=== PATIENT | female | born 1985 | race Caucasian/White ===

== ENCOUNTER 2019-11-27 17:17 | Emergency (ER) | payer BC, SELFPAY ==
[2019-11-27 18:26] VITALS: BP 141/99; PULSE 85; RESP 18; TEMP 36.6; O2SAT 100; BMI 27.4
--- NOTE | 2019-11-27 19:16 | ED_ITS ---
HPI - General Adult General: Chief complaint: General Medical Stated complaint: throat/neck pain, swollen throat Time Seen by Provider: 11/27/19 19:14 Source: patient Mode of arrival: ambulatory Limitations: no limitations History of Present Illness: HPI narrative: Patient comes in with throat pain with swallowing. Patient reports she was yawning and felt a strain and a pop in her left side of her anterior neck. Since that time patient had some increased difficulty swallowing. Patient appears well. Patient is managing secretions well. No acute distress is noted. Review of Systems General: Reports: 10 or more systems reviewed and unremarkable except in HPI and below ENMT: Reports: throat pain PFSH ED PFSH: Statuses (acute, chronic, etc) shown below reflect problem list status as previously entered and may not be historically accurate Social History Smoking and tobacco status: never smoked Female Reproductive History: Date of last menstrual period: 11/27/19 Physical Exam Const: COMMON NORMALS: no apparent distress and oriented x3 GENERAL APPEARANCE: cooperative HENMT: COMMON NORMALS: normocephalic, external ears normal, EAC's normal, TM's normal bilaterally and external nose normal HEAD & SCALP: normal to inspection and normocephalic FACE & SINUS: normal facial exam NOSE: external nose normal GENERAL EAR: hearing not grossly impaired EXTERNAL EAR: Yes external ears normal EXTERNAL AUDITORY CANAL: EAC's normal TYMPANIC MEMBRANE: TM's normal bilaterally MOUTH: oral and palatal mucosa normal THROAT: posterior oropharynx normal Eye: COMMON NORMALS: PERRL and EOMs intact bilaterally PUPIL: Yes PERRL Neck/C-Spine: COMMON NORMALS: full ROM and no lymphadenopathy GENERAL: No anterior neck swelling and Yes other (anterior soft tissue tenderness left side of neck) Lymph: LYMPHATIC: no lymphedema noted Chest: COMMONS NORMALS: inspection of chest normal and palpation of chest normal Resp: COMMON NORMALS: normal respiratory effort and clear to auscultation bilaterally AUSCULTATION: clear to auscultation bilaterally Cardio: COMMON NORMALS: regular rate and regular rhythm RATE: regular rate RHYTHM: regular rhythm GI: COMMON NORMALS: normal to inspection, nondistended, normoactive bowel sounds and non-tender : COMMON NORMALS: Yes no CVA tenderness BLADDER/KIDNEY EXAM: Yes no CVA tenderness Back/Pelvis: COMMON NORMALS: no CVA tenderness and thoracic and lumbar spine normal to inspection Extremity: COMMON NORMALS: normal to inspection GENERAL: No edema Neuro: COMMON NORMALS: oriented x3, moves all extremities and no focal motor deficits Psych: COMMON NORMALS: mental status grossly normal and cooperative Skin: COMMON NORMALS: no rashes or lesions noted GENERAL SKIN EXAM: no rashes or lesions noted Course Vital Signs: Vital signs: Vital Signs Temperature 98.3 F 11/27/19 19:28 Pulse Rate 74 11/27/19 19:28 Respiratory Rate 14 11/27/19 19:28 Blood Pressure 132/79 11/27/19 19:28 Pulse Oximetry 98 11/27/19 19:28 MDM - General Adult MDM Narrative: Medical decision making narrative: Exam scratch that patient comes in with throat pain after yawning. Exam notes no obvious swelling or posterior pharyngeal erythema. Palpation of the neck notes tenderness to the left anterior neck with no obvious lymphadenopathy or abscess formation. Differential diagnosis includes strep pharyngitis, cervical strain, tendinitis, intervertebral disc disease, facet arthropathy. Reviewed exam with patient re commended treatment with NSAIDs and fluids. Patient reports understanding and agreed to plan. Discharge Plan Discharge Patient Disposition: Home, Self-Care Clinical Impression: Tendonitis Condition: Stable Prescriptions: New diclofenac sodium 75 mg tablet,delayed release (DR/EC) 75 mg PO BID Qty: 20 RF: 0 Discharge Orders: Discharge Order (Routine); Ordered 11/27/19 Ordered By: Jamison Cabrera Referrals: Shelly Cowart MD [Family Provider] - Discharge Diet: Advance as tolerated Discharge Activity: Resume usual activity Patient Instructions: Cervical Sprain (ED) Activity Restrictions/Additional Instructions: Drink plenty of fluids Medications as directed Follow-up with primary care in one week for persistent pain Return to ER for uncontrolled pain or high fever Discharge Date/Time: 11/27/19 19:29 Coding Level of Care Code ED [employer] for [employer] Exam Problem Focused
[2019-11-27 19:21] VITALS: BP 130/79; PULSE 70; RESP 14; TEMP 36.7; O2SAT 98
[2019-11-27 19:28] VITALS: BP 132/79; PULSE 74; RESP 14; TEMP 36.8; O2SAT 98
== END 2019-11-27 19:29 | disposition home or self-care (01) ==
PROVIDERS: Emergency Provider Nurse Practitioner Family; Family Provider Family Medicine
DX: M77.9 Enthesopathy, unspecified (principal)
CPT/HCPCS: 99281

== ENCOUNTER → 2019-12-23 08:23 | Outpatient (BNVA) | payer BC, SELFPAY | PROVIDERS: Family Provider Family Medicine; PCP Family Medicine; Visit Provider Internal Medicine Cardiovascular Disease | DX: R07.9 Chest pain, unspecified (principal); R00.0 Tachycardia, unspecified | CPT/HCPCS: 80061; 84443; 85025 ==

== ENCOUNTER 2020-06-01 17:25 | Emergency (ER) | payer OTHER, SELFPAY ==
[2020-06-01 17:30] VITALS: BMI 27.1
[2020-06-01 17:47] VITALS: BP 132/85; PULSE 127; RESP 16; TEMP 36.9; O2SAT 98
--- NOTE | 2020-06-01 17:59 | XRR_ITS ---
PROCEDURE INFORMATION: Exam: XR Chest, 1 View Exam date and time: 06/01/2020 6:16 PM Age: 34 years old Clinical indication: Cough and fever and shortness of breath; Patient HX: SOB, cough x 7 days. Fever x 4 days; Additional info: Covid TECHNIQUE: Imaging protocol: XR of the chest Views: 1 view. COMPARISON: CR Chest 1 [place] [id number] 12/31/2017 10:13 AM FINDINGS: Lungs: Mild airspace disease within the left lung base. Infiltrate and/or atelectasis. Pleural space: Unremarkable. No pleural effusion. No pneumothorax. Heart/Mediastinum: Unremarkable. No cardiomegaly. Bones/joints: Unremarkable. XR/XR chest 1V portable [id number] IMPRESSION: Mild airspace disease within the left lung base. Infiltrate and/or atelectasis. This represents an interval change.
[2020-06-01 18:03] VITALS: O2SAT 99
[2020-06-01 18:08] VITALS: TEMP 38.3
[2020-06-01 18:12] LABS: Basophils % 0.2 %; Hemoglobin 14.5 g/dL (11.5-15.3); Lymphocytes # 1.2 10^3/uL (0.8-4.8); Mean Corpuscular HGB Conc 32.2 g/dL (30.0-36.0); Mean Corpuscular Volume 80.8 fL (81-99); Mean Platelet Volume 9.6 fL (7.4-10.4); Monocytes # 0.4 10^3/uL (0.2-0.9); Monocytes % 7.7 %; Neutrophils % 65.9 %; Nucleated Red Blood Cells % 0 %; Platelet Count 229 10^3/cmm (130-400); Red Blood Count 5.57 10^6/uL (4.1-5.3); White Blood Count 4.7 10^3/uL (4.0-10.0)
[2020-06-01] MEDS: sodium chloride 0.9% 1,000 ML 999 ML IV (18:21)
[2020-06-01] MEDS: ibuprofen 600 mg Tablet PO (18:21)
--- NOTE | 2020-06-01 18:23 | W.ED.FEVER ---
HPI - Fever General: Chief Complaint: Fever Stated Complaint: COVID SYMPTOMS Time Seen by Provider: 06/01/20 17:39 History of Present Illness: HPI Narrative: This patient is a 34 year old female - generally healthy other than a history of intermittent sinus tachycardia. Her father tested positive for COVID 9 days ago. He had mild illness - only two days of fever. She and her mother both became illl two days later and the patient comes in today because she is concerned about her 7 days of high fever - the highest 102.7 - and rarely below 101 even with tylenol. She does have a dry cough and has lost her sense of smell. She is only short of breath with walking across a room and she also gets dizzy when she stands and walks. She has not had an appetite and has been trying to drink a lot of fluids. She complains of a constant dry mouth. MD elicited complaint: fever, malaise and other (cough) Onset (ago): day(s) (7) Measured temperature: 102.7 F Context: sick contacts (father tested positive for COVID 9 days ago) Associated symptoms: Reports chills, cough, headache(s), myalgias and nausea; Deny flank pain or chest pain Treatments prior to arrival fever: acetaminophen Review of Systems General: Reports: 10 or more systems reviewed and unremarkable except in HPI and below Const: Reports: fever(s), chills, body aches, change in appetite, fatigue and malaise Eyes: Denies: change in vision ENMT: Denies: odynophagia Card: Denies: chest pain or swelling of feet/ankles Resp: Reports: non-productive cough; Denies: dyspnea or productive cough GI: Reports: nausea : Denies: flank pain or difficulty voiding Musc: Denies: neck pain or back pain Skin/Breast: Denies: rash Neuro: Reports: headache(s) Bogdan/Lymph: Denies: easy bruising or easy bleeding PFSH ED PFSH: Medical History Hx of thyroid nodule Intermittent palpitations Family History Mother Diabetes Hyperlipidemia Hypertension Father Hyperlipidemia Hypertension Denies family history of CAD (coronary artery disease) Clotting disorder Dementia Psychiatric illness Chronic kidney disease (CKD) Suicide Anesthesia complication Bleeding disorder Family history of premature coronary artery disease Lung disease Cancer Stroke Social History Smoking and tobacco status: never smoked Alcohol intake: never Female Reproductive History: Date of last menstrual period: 11/27/19 Physical Exam Const: COMMON NORMALS: no acute distress, patient oriented x3, no limitations and alert GENERAL APPEARANCE: cooperative, comfortable and anxious HENMT: HEAD & SCALP: normal to inspection FACE & SINUS: normal facial exam Eye: GENERAL EYE: appearance normal, both eyes and all related structures Neck/C-Spine: COMMON NORMALS: supple, no meningeal signs and no JVD Chest: COMMONS NORMALS: normal inspection of the chest Resp: COMMON NORMALS: normal respiratory effort and No use of accessory muscles AUSCULTATION: crackles Laterality: bilateral Cardio: COMMON NORMALS: no JVD, regular rhythm and No murmurs present (Cardio) RATE: tachycardic RHYTHM: regular rhythm GI: COMMON NORMALS: Normal to inspection, nondistended, normoactive bowel sounds present, Soft to palpation and non-tender INSPECTION: Yes normal to inspection AUSCULTATION: Yes normoactive bowel sounds PALPATION: Yes Soft to palpation Back/Pelvis: COMMON NORMALS: thoracic and lumbar spine normal to inspection Extremity: COMMON NORMALS: normal to inspection Neuro: COMMON NORMALS: patient oriented x3, moves all extremities, no focal motor deficits and no sensory deficits noted SENSORIUM/ORIENTATION: Yes alert MENINGEAL SIGNS: Yes no meningeal signs Psych: COMMON NORMALS: mental status grossly normal, cooperative and normal affect Skin: COMMON NORMALS: no rashes or lesions noted and turgor normal GENERAL SKIN EXAM: no rashes or lesions noted and turgor normal Course ED course: This patient presents with signs and symptoms consistent with COVID as well as a known exposure to a household member with COVID. She has been sick for about a week and is concerned about progression of symptoms. She is concerned that she has had a fever for this long. She has been checking her temperature regularly at home and even checked it repeatedly while she was here in the emergency room. She also has a pulse ox and has been checking that at home. Her chest x-ray today does show some changes consistent with COVID viral pneumonia. Her lab work is also consistent with COVID. She refused a COVID nasal swab. She did not want it done and felt that since she had exposure in classical symptoms that she did not need it. I would agree with that. She was given IV fluids and observed in the ED. Her pulse ox remained 98% on room air. She refused ibuprofen due to concerns that it was contraindicated with COVID. She asked about hydroxychloroquine and Zithromax. We discussed that at this stage of her illness and level of illness that there were no medications that were indicated. She does not require hospitalization at this point. We had a long discussion about return precautions. She also understands about isolation precautions. Vital Signs: Vital signs: Vital Signs Temperature 101.7 F H 06/01/20 19:42 Pulse Rate 101 H 06/01/20 20:40 Respiratory Rate 18 06/01/20 19:42 Blood Pressure 137/83 06/01/20 19:42 Pulse Oximetry 98 06/01/20 20:40 MDM - Fever Lab Data: Labs: Lab Results 06/01/20 06/01/20 06/01/20 Range/Units 18:03 18:03 18:03 WBC 4.7 (4.0-10.0) 10^3/ uL RBC 5.57 H (4.1-5.3) 10^6/u L Hgb 14.5 (11.5-15.3) g/dL Hct 45.0 (37.0-47.0) % MCV 80.8 L (81-99) fL MCH 26.0 L (28.0-34.0) pg MCHC 32.2 (30.0-36.0) g/dL RDW 13.0 (12.1-15.1) % Plt Count 229 (130-400) 10^3/c mm MPV 9.6 (7.4-10.4) fL Neut % (Auto) 65.9 % Lymph % (Auto) 26.0 % [place] % (Auto) 7.7 % Eos % (Auto) 0.0 % Baso % (Auto) 0.2 % Neut # (Auto) 3.10 (1.8-7.7) 10^3/u L Lymph # (Auto) 1.2 (0.8-4.8) 10^3/u L [place] # (Auto) 0.4 (0.2-0.9) 10^3/u L Eos # (Auto) 0.0 (0.0-0.8) 10^3/u L Baso # (Auto) 0.0 (0.0-0.1) 10^3/u L Nucleated RBC % (a uto) 0 % Nucleated RBCs # 0.0 /100WBC PT 12.60 (12.1-14.9) SECO NDS INR 0.92 (0.8-1.2) Fibrinogen 505 H (174-498) mg/dL D-Dimer 0.92 H (0-0.59) ug/mIFE U Sodium 134 L (136-145) mmol/L Potassium 3.8 (3.5-5.1) mmol/L Chloride 98 (98-107) mmol/L Carbon Dioxide 24 (22-29) mmol/L Anion Gap 15.8 (5-19) BUN 6 (6-20) mg/dL Creatinine 0.7 (0.5-0.9) mg/dL GFR Calculation 97.0 (90-130) mL/min Glucose 114 (65-115) mg/dL Calculated Osmolal ity 275 L (285-295) mOsm/k g Calcium 8.8 (8.5-10.5) mg/dL Ferritin 158 H (15-150) ng/mL Total Bilirubin 0.7 (0.15-1.2) mg/dL AST 50 H (0-32) U/L ALT 38 H (0-33) U/L Alkaline Phosphata se 117 H (35-105) IU/L Lactate Dehydrogen ase 207 (135-214) U/L C-Reactive Protein 30.4 H (0.0-4.9) mg/L NT-Pro-B Natriuret Pep 9 (0-125) pg/mL Total Protein 8.2 (6.6-8.7) g/dL Albumin 4.4 (3.5-5.2) g/dL Globulin 3.8 (1.3-4.6) g/dL Procalcitonin 0.08 (0-0.5) ng/mL HCG, Qual (Negative) 06/01/20 Range/Units 18:03 WBC (4.0-10.0) 10^3/ uL RBC (4.1-5.3) 10^6/u L Hgb (11.5-15.3) g/dL Hct (37.0-47.0) % MCV (81-99) fL MCH (28.0-34.0) pg MCHC (30.0-36.0) g/dL RDW (12.1-15.1) % Plt Count (130-400) 10^3/c mm MPV (7.4-10.4) fL Neut % (Auto) % Lymph % (Auto) % [place] % (Auto) % Eos % (Auto) % Baso % (Auto) % Neut # (Auto) (1.8-7.7) 10^3/u L Lymph # (Auto) (0.8-4.8) 10^3/u L [place] # (Auto) (0.2-0.9) 10^3/u L Eos # (Auto) (0.0-0.8) 10^3/u L Baso # (Auto) (0.0-0.1) 10^3/u L Nucleated RBC % (a uto) % Nucleated RBCs # /100WBC PT (12.1-14.9) SECO NDS INR (0.8-1.2) Fibrinogen (174-498) mg/dL D-Dimer (0-0.59) ug/mIFE U Sodium (136-145) mmol/L Potassium (3.5-5.1) mmol/L Chloride (98-107) mmol/L Carbon Dioxide (22-29) mmol/L Anion Gap (5-19) BUN (6-20) mg/dL Creatinine (0.5-0.9) mg/dL GFR Calculation (90-130) mL/min Glucose (65-115) mg/dL Calculated Osmolal ity (285-295) mOsm/k g Calcium (8.5-10.5) mg/dL Ferritin (15-150) ng/mL Total Bilirubin (0.15-1.2) mg/dL AST (0-32) U/L ALT (0-33) U/L Alkaline Phosphata se (35-105) IU/L Lactate Dehydrogen ase (135-214) U/L C-Reactive Protein (0.0-4.9) mg/L NT-Pro-B Natriuret Pep (0-125) pg/mL Total Protein (6.6-8.7) g/dL Albumin (3.5-5.2) g/dL Globulin (1.3-4.6) g/dL Procalcitonin (0-0.5) ng/mL HCG, Qual Negative (Negative) Discharge Plan Discharge Patient Disposition: Home Clinical Impression: COVID-19 Condition: Stable Prescriptions: No Action metoprolol tartrate 25 mg tablet 12.5 mg PO BID Qty: 30 RF: 0 Vitamin C 1,000 mg Tablet 1,000 mg PO DAILY RF: 0 Tylenol Extra Strength 500 mg Tablet 1,000 mg PO PRN RF: 0 budesonide 0.5 mg/2 mL Suspension For Nebulization 0.5 mg INHALATION BID RF: 0 Vitamin D3 1 tab PO DAILY RF: 0 zinc 1 tab PO DAILY RF: 0 Discharge Orders: Discharge Order (Routine); Ordered 06/01/20 Ordered By: Natalie Sarmiento Referrals: Shelly Cowart MD [Primary Care Provider] - Discharge Diet: Usual diet Discharge Activity: Resume usual activity Patient Instructions: Viral Pneumonia (ED) Activity Restrictions/Additional Instructions: Continue to self quarantine until you are free of any symptoms for at least 72 hours. Continue your follow-up with the health department. Return to the emergency department if shortness of breath or pulse ox less than 94% for more than a few hours. Return for any other concerns as well. Discharge Date/Time: 06/01/20 20:41 Coding Level of Care Code ED [employer] for [employer] Exam Comprehensive
[2020-06-01 18:26] LABS: D Dimer 0.92 ug/mIFEU (0-0.59)
[2020-06-01 18:28] LABS: Fibrinogen 505 mg/dL (174-498)
[2020-06-01 18:37] LABS: HCG, Serum Qual Negative (Negative)
[2020-06-01 18:40] LABS: NT Pro B Type Natriuretic Pept 9 pg/mL (0-125); Procalcitonin 0.08 ng/mL (0-0.5)
[2020-06-01 18:52] LABS: Alanine Aminotransferase 38 U/L (0-33); Albumin Level 4.4 g/dL (3.5-5.2); Alkaline Phosphatase 117 IU/L (35-105); Anion Gap 15.8 (5-19); Aspartate Amino Transferase 50 U/L (0-32); Blood Urea Nitrogen 6 mg/dL (6-20); C Reactive Protein 30.4 mg/L (0.0-4.9); Calcium 8.8 mg/dL (8.5-10.5); Carbon Dioxide 24 mmol/L (22-29); Chloride 98 mmol/L (98-107); Ferritin 158 ng/mL (15-150); Globulin 3.8 g/dL (1.3-4.6); Glucose 114 mg/dL (65-115); Lactate Dehydrogenase 207 U/L (135-214); Osmolality Calculated 275 mOsm/kg (285-295); Potassium 3.8 mmol/L (3.5-5.1); Sodium 134 mmol/L (136-145); Total Bilirubin 0.7 mg/dL (0.15-1.2); Total Protein 8.2 g/dL (6.6-8.7)
[2020-06-01 19:00] VITALS: RESP 16
[2020-06-01 19:03] LABS: INR 0.92 (0.8-1.2)
[2020-06-01 19:42] VITALS: BP 137/83; PULSE 103; RESP 18; TEMP 38.7; O2SAT 96
[2020-06-01 20:40] VITALS: PULSE 101; O2SAT 98
== END 2020-06-01 20:41 | disposition home or self-care (01) ==
PROVIDERS: Emergency Provider Emergency Medicine; PCP Family Medicine
DX: U07.1 COVID-19 (principal)
CPT/HCPCS: 12345; 36415; 71045; 80053; 82728; 83615; 83880; 84145; 84703; 85025; 85378; 85384; 85610; 86140; 96360; 99282; 99283; J7030

== ENCOUNTER 2020-08-27 18:09 | Emergency (ER) | payer SELFPAY ==
[2020-08-27 18:23] VITALS: BP 114/72; PULSE 81; RESP 22; TEMP 36.4; O2SAT 98; BMI 28.7
--- NOTE | 2020-08-27 18:56 | W.ED.ALLEREA ---
HPI - Allergic Reaction General: Chief complaint: Allergic Reaction Stated complaint: rash/throat Time Seen by Provider: 08/27/20 18:38 Source: patient Mode of arrival: ambulatory Limitations: no limitations History of Present Illness: HPI narrative: Annita is a very nice 35-year-old female who comes in complaining of an allergic reaction. Patient states that she ate some food and then went outside to work in her yard when she started to feel nauseous and had cramping abdominal pain. She then developed diarrhea. She denies any chest pain or shortness of breath. She denies any throat tightening. The patient states after she finished having a bowel movement she noticed swelling of her ears and diffuse hives and itching all over her body and extremities. Patient is taken 2 Benadryl tablets at home and feels mildly better but still has the occasional cramping abdominal pain and itching and hives. Patient denies having any similar symptoms to this in the past. She states the food that she ate was food that she is eaten multiple times in the past. She is unaware of any new medicines, soaps or any other new allergens that may have caused this. This time the patient is no distress and she denies any throat tightening or shortness of breath. She denies any syncope. Associated symptoms: Reports abdominal pain and nausea; Deny dizziness, facial swelling, hoarseness, tongue swelling or vomiting Review of Systems Const: Denies: fever(s), chills, body aches, fatigue, malaise or diaphoresis Eyes: Denies: change in vision, blurry vision, photophobia, eye discomfort, eye discharge, eye redness or yellow eyes ENMT: Denies: throat pain, odynophagia, hoarseness, swelling of lips/tongue, ear or mastoid pain, ear discharge, change in hearing or nasal discharge Card: Denies: chest pain, palpitations, irregular heart rhythm, edema, lightheadedness, syncope, pre-syncope, dyspnea on exertion or orthopnea Resp: Denies: dyspnea, productive cough, non-productive cough, wheezing, hemoptysis or chest congestion GI: Reports: abdominal pain, nausea and diarrhea; Denies: vomiting, hematemesis, coffee ground emesis, heartburn, constipation, GI cramping, hematochezia or melena : Denies: flank pain, dysuria, urinary frequency, urinary urgency or hematuria Musc: Denies: neck pain, back pain, extremity pain, extremity swelling, joint pain, joint swelling, joint redness, joint warmth or joint stiffness Skin/Breast: Denies: rash, pruritus, erythema, skin pain or skin tenderness Neuro: Denies: headache(s), numbness in extremities, weakness in extremities, sensory changes, lack of coordination, difficulty walking, dizziness, vertigo, confusion, Slurred speech present or seizure-like activity Bogdan/Lymph: Denies: easy bruising, easy bleeding, petechiae, purpura or enlarged lymph nodes All/Imm: Reports: urticaria; Denies: throat swelling, tongue swelling, facial swelling or acute wheezing PFSH ED PFSH: Medical History Hx of thyroid nodule Intermittent palpitations Family History Mother Diabetes Hyperlipidemia Hypertension Father Hyperlipidemia Hypertension Denies family history of CAD (coronary artery disease) Clotting disorder Dementia Psychiatric illness Chronic kidney disease (CKD) Suicide Anesthesia complication Bleeding disorder Family history of premature coronary artery disease Lung disease Cancer Stroke Social History Smoking and tobacco status: never smoked Alcohol intake: never Female Reproductive History: Date of last menstrual period: 11/27/19 Physical Exam Const: COMMON NORMALS: no acute distress, patient oriented x3, no limitations and alert GENERAL APPEARANCE: cooperative HENMT: COMMON NORMALS: normocephalic, atraumatic, external ears normal, EAC's normal and Normal external nose present HEAD & SCALP: normal to inspection, normocephalic and atraumatic FACE & SINUS: normal facial exam and face symmetric NOSE: Normal external nose present and Normal nares present EXTERNAL EAR: Yes external ears normal EXTERNAL AUDITORY CANAL: EAC's normal MOUTH: Normal oral and palatal mucosa present, lip normal and tongue normal Eye: COMMON NORMALS: Equal, round and reactive pupils present and conjunctivae normal GENERAL EYE: appearance normal, both eyes and all related structures ALIGNMENT: Yes alignment normal PERIORBITAL: periorbital findings normal EYELID: eyelids normal CONJUNCTIVA: Yes conjunctivae normal SCLERA: sclerae normal PUPIL: Yes Equal, round and reactive pupils present Neck/C-Spine: COMMON NORMALS: full ROM, no lymphadenopathy, supple, no meningeal signs and no JVD GENERAL: Yes normal visual inspection and Yes trachea midline Chest: COMMONS NORMALS: normal inspection of the chest and normal palpation of entire chest wall Resp: COMMON NORMALS: normal respiratory effort, No retractions, No use of accessory muscles and clear to auscultation bilaterally EFFORT & INSPECTION: Yes able to speak in complete sentences and Yes symmetric chest movement AUSCULTATION: clear to auscultation bilaterally, no crackles, no rales, no rhonchi and no wheezes Cardio: COMMON NORMALS: no JVD, regular rate, regular rhythm, S1 normal heart sound present and S2 normal heart sound present RATE: regular rate RHYTHM: regular rhythm HEART SOUNDS: S1 normal heart sound present, S2 normal heart sound present, no click, no gallops, no murmurs and no rubs GI: COMMON NORMALS: Soft to palpation and No hepatosplenomegaly present PALPATION: Yes Soft to palpation, No Tenderness to palpation present (GI), No Guarding due to palpation present (GI), No Rigid due to palpation, Yes No hepatosplenomegaly present, No Hernia present, No Palpable mass present and No Pulsatile mass present : COMMON NORMALS: Yes no CVA tenderness BLADDER/KIDNEY EXAM: Yes no CVA tenderness EXTERNAL FEMALE EXAM: No Hernia present Back/Pelvis: COMMON NORMALS: no CVA tenderness, thoracic and lumbar spine normal to inspection, no thoracic nor lumbar tenderness and thoraco-lumbar ROM normal Extremity: COMMON NORMALS: normal to inspection, full ROM, capillary refill normal, no joint enlargement, no clubbing, cyanosis or edema and no calf tenderness Neuro: COMMON NORMALS: patient oriented x3, CN's II-XII intact bilaterally, moves all extremities, no focal motor deficits and no sensory deficits noted SENSORIUM/ORIENTATION: Yes alert MENINGEAL SIGNS: Yes no meningeal signs SPEECH: speech normal Psych: COMMON NORMALS: mental status grossly normal, Normal thought process present, cooperative, normal affect, speech normal and activity/motor behavior normal SPEECH: Yes normal speech THOUGHT PROCESS: Normal thought process present Skin: COMMON NORMALS: turgor normal, no jaundice, no petechiae and no mottling GENERAL SKIN EXAM: turgor normal and other (Diffuse hives noted on trunk and extremities) Course Vital Signs: Vital signs: Vital Signs Temperature 97.6 F 10/30/20 18:23 Pulse Rate 94 10/30/20 19:25 Respiratory Rate 18 08/27/20 19:25 Blood Pressure 121/84 08/27/20 19:25 Pulse Oximetry 100 08/27/20 19:25 MDM - Allergic Reaction MDM Narrative: Medical decision making narrative: Discharge - patient appeared to have a significant allergic reaction but at this time all symptoms have resolved with the medicines given here by me. It sounds as though this is likely more than something that she ate. She never had throat tightening or shortness of breath. She did have some cramping and diarrhea but that has resolved as well. Patient agrees to return should her symptoms change or worsen and I have advised her how to take Benadryl and Pepcid at home and I have prescribed her prednisone to take as well. Patient understands this and will return if needed and complete the steroids have given her she will follow-up with her doctor for allergy testing. Discharge Plan Discharge Patient Disposition: Home Clinical Impression: Allergic reaction Qualifiers: Encounter type: initial encounter Qualified Code(s): T78.40XA - Allergy, unspecified, initial encounter Condition: Stable Prescriptions: New prednisone 10 mg tablets,dose pack See Rx Instructions .ROUTE .COMPLEX Qty: 21 RF: 0 No Action metoprolol tartrate 25 mg tablet 12.5 mg PO BID Qty: 30 RF: 0 Vitamin C 1,000 mg Tablet 1,000 mg PO DAILY RF: 0 Tylenol Extra Strength 500 mg Tablet 1,000 mg PO PRN RF: 0 budesonide 0.5 mg/2 mL Suspension For Nebulization 0.5 mg INHALATION BID RF: 0 Vitamin D3 1 tab PO DAILY RF: 0 zinc 1 tab PO DAILY RF: 0 Discharge Orders: Discharge Order (Routine); Ordered 08/27/20 Ordered By: Mary Daugherty Referrals: Shelly Cowart MD [Primary Care Provider] - 1-3 days Discharge Diet: Advance as tolerated Discharge Activity: Resume usual activity Patient Instructions: Allergic Reaction, Urticaria (ED), Food Allergy (ED) Activity Restrictions/Additional Instructions: Please return to the ER immediately for any of the signs or symptoms listed on your discharge instruction sheets, worsening/changing of your symptoms, you are not getting better as quickly as expected, or for ANY other cause or concerns. Take Benadryl 25 to 50 mg every 6 hours as needed for itching or hives. Take Pepcid 20 mg every 12 hours for itching or hives. Take the steroids to completion. Coding Level of Care Code ED Marketing Assistant [employer] for [employer] Exam Comprehensive
[2020-08-27] MEDS: diphenhydrAMINE 50 mg/mL SDV 1mL 25 MG IVP (19:02)
[2020-08-27] MEDS: sodium chloride 0.9% 1,000 ML 999 ML IV (19:05)
[2020-08-27] MEDS: ondansetron 2 mg/ML SDV 2 mL 4 MG IVP (19:06)
[2020-08-27] MEDS: famotidine 20 mg/2 mL INJ 40 MG IVP (19:07)
[2020-08-27 19:25] VITALS: BP 121/84; PULSE 94; RESP 18; O2SAT 100
[2020-08-27 20:12] VITALS: BP 126/75; PULSE 97; RESP 17; O2SAT 99
--- NOTE | 2020-08-27 20:18 | PC.NURSE ---
patient refused prednisone tablets, advised patient that it is her choice and was recommended by Dr. Daugherty, she voiced understanding; patient advised on benadryl usage and perscription for prednisone.
== END 2020-08-27 20:22 | disposition home or self-care (01) ==
PROVIDERS: Emergency Provider Emergency Medicine; PCP Family Medicine
DX: T78.40XA Allergy, unspecified, initial encounter (principal)
CPT/HCPCS: 12345; 96361; 96374; 96375; 99282; 99283; J1200; J2405; J2930; J3490; J7030

== ENCOUNTER 2022-08-09 13:01 | Outpatient (CLI) | payer SELFPAY ==
--- NOTE | 2022-08-09 13:24 | US_ITS ---
WS: [id number] ULTRASOUND LEFT BREAST HISTORY: NIPPLE Discharge, left COMPARISON: 12/23/2014 TECHNIQUE: 2-D and Doppler. Ultrasound directed to the nipple and area of pain at 2:00. There are dilated ducts with mild inspis sated material around the nipple and in the subareolar region. No mass or increased vascularity. Ther e is no abnormality in the area of pain. US/US breast LT complete [id number] IMPRESSION: BI-RADS: 2-Benign FOLLOW-UP: See Report [employer] recommendations mammographic evaluation after the age of 34 workup mammographic abnormalities. Patient has refused the mammogram . Mammogram would be the study of tracer at this time. Please note that ultraso und evaluate only a small portion of the breast.
== END 2022-08-09 13:02 | disposition home or self-care (01) ==
PROVIDERS: PCP Family Medicine; Visit Provider Nurse Practitioner Family
DX: N64.52 Nipple discharge (principal)
CPT/HCPCS: 76641

== ENCOUNTER 2025-05-18 07:55 | Outpatient (CLI) | payer SELFPAY ==
--- NOTE | 2025-05-18 08:04 | US_ITS ---
WS: [id number] ULTRASOUND LEFT BREAST HISTORY: LEFT BREAST PAIN COMPARISON: 08/09/2022 TECHNIQUE: 2-D and Doppler. Retroareolar ducts are identified as on the prior study. No intraductal mass or papilloma. No debris. No distortion of the ducts or nipple retraction. US/US breast LT limited* [id number] IMPRESSION: BI-RADS: 2- Benign FOLLOW-UP: Age 42
== END 2025-05-18 07:56 | disposition home or self-care (01) ==
LOC: RAD 07:57
PROVIDERS: PCP Family Medicine; Visit Provider Nurse Practitioner Family
DX: N64.4 Mastodynia (principal)
CPT/HCPCS: 76642